=== PATIENT | female | born 1980 | race American Indian/Alaskan Native ===

== ENCOUNTER 2018-04-25 12:59 | Emergency (ER) | payer OTHER ==
[2018-04-25] MEDS ORDERED: ALUM-MAG HYDROX-SIMETH 200-200-20MG/5ML PO ONE (13:35)
[2018-04-25] MEDS ORDERED: ZOFRAN ODT PO ONE (13:35)
[2018-04-25 14:04] LABS: Hematocrit 32.8 % (30.3-42.9); Hemoglobin 10.1 gm/dl (10.1-14.3); Mean Corpuscular HGB Conc 31 % (30-34); Platelet Count 215 K/mm3 (140-440); Red Blood Count 4.79 M/mm3 (3.65-5.03); Red Cell Distribution Width 18.3 % (13.2-15.2)
[2018-04-25 14:07] LABS: Mean Corpuscular Volume 69 fl (79-97)
[2018-04-25 14:25] LABS: Alanine Aminotransferase 10 units/L (7-56); BUN/Creatinine Ratio 25; Blood Urea Nitrogen 10 mg/dL (7-17); Calcium 8.5 mg/dL (8.4-10.2); Hemolysis Index 7
--- NOTE | 2018-04-25 14:28 | Emergency Department Report ---
HPI - General Chief Complaint: Abdominal Pain Time Seen by Provider: 04/25/18 13:29 - HPI HPI: 38-year-old female with no problem medical history presents ED complaining of generalized abdominal pain for the past week. Patient admits one episode of vomiting yesterday. ED Past Medical Hx - Past Medical History Previous Medical History?: No Hx Hypertension: No Hx Congestive Heart Failure: No Hx Diabetes: No Hx Deep Vein Thrombosis: No Hx Renal Disease: No Hx Sickle Cell Disease: No Hx Seizures: No Hx Asthma: No Hx COPD: No - Surgical History Past Surgical History?: Yes Additional Surgical History: x 1 - Social History Smoking Status: Never Smoker Substance Use Type: None - Medications Home Medications: Home Medications Medication Instructions Recorded Confirmed Last Taken Type HYDROcodone/APAP 5-325 [[place] 1 each PO Q6HR PRN #30 tablet 08/27/14 Unknown Rx 5/325] Ibuprofen [Advil 100 MG tab] 600 mg PO Q6H PRN #30 tablet 08/27/14 Unknown Rx Naproxen [Naprosyn] 500 mg PO BID #20 tablet 02/09/18 Unknown Rx methOCARBAMOL [Robaxin TAB] 500 mg PO Q8HR PRN #20 tablet 02/09/18 Unknown Rx Dicyclomine [Bentyl] 10 mg PO BID #10 capsule 04/25/18 Unknown Rx Mag Hydrox/Aluminum Hyd/Simeth 15 ml PO QID #1 oral.susp 04/25/18 Unknown Rx [Maalox Advanced Suspension] Ondansetron (Nf) [Zofran TAB] 8 mg PO Q8HR #20 tablet 04/25/18 Unknown Rx ED Review of Systems ROS: Stated complaint: STOMACH PAIN/LEG/BACK Other details as noted in HPI Comment: All other systems reviewed and negative Physical Exam - Physical Exam Vital Signs: Vital Signs 04/25/18 13:03 Temperature 98.4 F Pulse Rate 87 Respiratory 18 Rate Blood Pressure 105/65 O2 Sat by Pulse 99 Oximetry Physical Exam: GENERAL: Alert and oriented x3, no apparent distress, Normal Gait, atraumatic. HEAD: Head is normocephalic and a-traumatic. NECK: Supple. Non edematous, No carotid bruits. No lymphadenopathy or thyromegaly. No C-spine tenderness LUNGS: Symetrical with respiration, No wheezing, no rales or crackles, CTAB. HEART: S1, S2 present, regular rate and rhythm without murmur, no rubs, no gallops. Non tender to palpation ABDOMEN: No organomegaly was noted,Positive bowel sounds, soft, and non- distended. . Nontender to palpation on all Quadrants, NO CVA tenderness. BACK: Full range of motion, no spinal tenderness, nontender to palpation. SKIN: Warm and dry, No lesions, No ulceration or induration present. ED Course Vital Signs 04/25/18 13:03 Temperature 98.4 F Pulse Rate 87 Respiratory 18 Rate Blood Pressure 105/65 O2 Sat by Pulse 99 Oximetry ED Medical Decision Making - Lab Data Result diagrams: 04/25/18 13:40 04/25/18 13:40 - Medical Decision Making 38-year-old female presents with a gastroenteritis CBC, CMP, urinalysis and urine test Labs are within normal limits. Discuss lab results the patient. Discussed the patient to follow-up with the primary care physician. Vital signs are normal patient is in acute distress. Discussed with the patient that if new onset of symptoms or worsening symptoms return to ED Critical care attestation.: If time is entered above; I have spent that time in minutes in the direct care of this critically ill patient, excluding procedure time. ED Disposition Clinical Impression: Gastroenteritis Disposition: DC-01 TO HOME OR SELFCARE Is pt being admited?: No Does the pt Need Aspirin: No Condition: Stable Instructions: Abdominal Pain (ED), Acute Nausea and Vomiting (ED), Gastroenteritis (ED) Additional Instructions: Make sure to follow up with the primary care physician as discussed. Take all your medications as you've been prescribed. If you have any worsening symptoms or develop new symptoms please return to ED immediately. Prescriptions: Dicyclomine [Bentyl] 10 mg PO BID #10 capsule Mag Hydrox/Aluminum Hyd/Simeth [Maalox Advanced Suspension] 15 ml PO QID #1 oral.susp Ondansetron (Nf) [Zofran TAB] 8 mg PO Q8HR #20 tablet Referrals: PRIMARY CARE, [Referring] - 3-5 Days [facility] [Provider Group] - 3-5 Days Forms: Accompanied Note, Work/School Release Form(ED) Time of Disposition: 17:12
[2018-04-25 16:51] LABS: Bilirubin,Urine NEG (Negative); Blood,Urine MOD (Negative); Color,Urine Yellow (Yellow); Mucus,Urine FEW /HPF; Protein,Urine <15 mg/dL mg/dL (Negative)
[2018-04-25 16:55] LABS: HCG Qualitative,Urine Negative (Negative)
[2018-04-25 17:52] VITALS: BP 95/63
== END 2018-04-25 17:52 | disposition home or self-care (01) ==
LOC: ED 12:59
DX: K52.9 Noninfective gastroenteritis and colitis, unspecified (principal)
CPT/HCPCS: 36415; 80053; 81001; 81025; 85027; 99283; Q0162

== ENCOUNTER 2018-06-08 20:08 | Emergency (ER) | payer OTHER ==
[2018-06-08 20:45] VITALS: BP 115/59
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
[2018-06-08 21:23] LABS: HCG Qualitative,Urine Negative (Negative)
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
[2018-06-08] MEDS ORDERED: IBUPROFEN PO ONE ×2 (22:52)
[2018-06-08] MEDS ORDERED: FLEXERIL ONE (22:53)
[2018-06-08] MEDS ORDERED: FLEXERIL PO ONE (22:53)
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
== END 2018-06-09 00:24 | disposition home or self-care (01) ==
LOC: ED 20:08
DX: M54.5 Low back pain (principal); V89.2XXA Person injured in unspecified motor-vehicle accident, traffic, initial encounter; Y93.89 Activity, other specified; Y92.89 Other specified places as the place of occurrence of the external cause; Y99.8 Other external cause status
CPT/HCPCS: 72100; 81025; 99284

== ENCOUNTER 2018-06-11 09:00 | Emergency (ER) | payer OTHER ==
[2018-06-11 09:19] VITALS: BP 98/59
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
[2018-06-11] MEDS ORDERED: NORCO 5/325 PO ONE (10:41)
== END 2018-06-11 11:21 | disposition home or self-care (01) ==
LOC: ED 09:00
DX: S39.012A Strain of muscle, fascia and tendon of lower back, initial encounter (principal); G89.29 Other chronic pain; M54.9 Dorsalgia, unspecified; V89.2XXA Person injured in unspecified motor-vehicle accident, traffic, initial encounter; Y93.89 Activity, other specified; Y92.89 Other specified places as the place of occurrence of the external cause; Y99.8 Other external cause status
CPT/HCPCS: 99283

== ENCOUNTER 2020-12-06 14:53 | Outpatient (CLI) | payer OTHER ==
--- NOTE | 2020-12-06 16:08 | XRay Report ---
Left knee 3 views INDICATION: Knee pain FINDINGS: Alignment appears normal. Mild patellofemoral degenerative change. No acute fracture or dis location. Signer Name: Dean Burkett MD Signed: 12/06/2020 4:03 PM Workstation Name: [facility] [id number]
== END 2020-12-06 14:54 | disposition home or self-care (01) ==
LOC: SPVIMAG 14:53
PROVIDERS: ATTEND Urology
DX: M17.12 Unilateral primary osteoarthritis, left knee (principal)